=== PATIENT | female | born 1950 | race Caucasian/White ===

== ENCOUNTER 2017-02-03 19:22 | Emergency (ER) | payer BC, OTHER ==
[~2017-02-03] VITALS: Ht 165.1 cm; Wt 65.0 kg
--- NOTE | 2017-02-03 19:34 | PD ---
HPI Chief Complaint: Garcia act Time Seen by Provider: 19:34 Travel History International Travel<30 days: No Contact w/Intl Traveler<30days: No Traveled to known affect area: No History of Present Illness HPI 66-year-old female came to the emergency room brought by the semiconductor packages platemaker under Garcia act for trying to cut her wrist. Patient says that her is a chronic alcoholic and today when she found him drinking again she got frustrated and went back home and cut her wrist with scissors and sent him pictures. She waited to hear back from him but when she did not she bandaged it and went to sleep. That is When the deputies showed up at her doorstep because her had called them. Patient says she had no intentions of killing herself. She does not drink alcohol or and do any drugs. She seems calm and cooperative. PFSH Past Medical History Narrative Medical List of her past medical, surgical, social and family history was reviewed from the nursing note. Social History Tobacco Use: No Allergies-Medications (Allergen,Severity, Reaction): Coded Allergies: Opiate Agonists (Narcotics) (Verified Allergy, Intermediate, 02/03/17) severe itchiness Comments List of her allergies reviewed from the nursing note. Reported Meds & Prescriptions Reported Meds & Active Scripts Active Reported Ambien (Zolpidem Tartrate) 10 Mg Tab 10 Mg PO HS PRN Sulfasalazine 500 Mg Tab 500 Mg PO Q8H Soma (Carisoprodol) 250 Mg Tab 250 Mg PO QID PRN Wellbutrin SR 12 HR (Bupropion HCl) 200 Mg Tab 200 Mg PO Q12HR Narrative Medication List of her home medications reviewed from the nursing note. Review of Systems Except as stated in HPI: all other systems reviewed are Neg Physical Exam Narrative GENERAL: Awake, alert, no obvious distress SKIN: Focused skin assessment warm/dry. Multiple superficial lacerations along with 2 deep laceration on the left wrist volar aspect. 2 of them have some active bleeding in the form of slow ooze HEAD: Atraumatic. Normocephalic. EYES: Pupils equal and round. No scleral icterus. No injection or drainage. ENT: No nasal bleeding or discharge. Mucous membranes pink and moist. NECK: Trachea midline. No JVD. CARDIOVASCULAR: Regular rate and rhythm. No murmur appreciated. RESPIRATORY: No accessory muscle use. Clear to auscultation. Breath sounds equal bilaterally. GASTROINTESTINAL: Abdomen soft, non-tender, nondistended. Hepatic and splenic margins not palpable. MUSCULOSKELETAL: No obvious deformities. No clubbing. No cyanosis. No edema. NEUROLOGICAL: Awake and alert. No obvious cranial nerve deficits. Motor grossly within normal limits. Normal speech. PSYCHIATRIC: Appropriate mood and affect; insight and judgment normal. Data Data Last Documented VS Vital Signs Date Time Temp Pulse Resp B/P Pulse Ox O2 Delivery O2 Flow Rate FiO2 02/04/17 14:26 98.3 83 18 119/83 95 Room Air Orders Complete Blood Count With Diff (02/03/17 19:57) Comprehensive Metabolic Panel (02/03/17 19:57) Psych Screen (02/03/17 19:57) Drug Screen, Random Urine (02/03/17 19:57) Alcohol (Ethanol) (02/03/17 19:57) Tetanus/Diphtheria Tox Adult (Tetanus/Di (02/03/17 21:30) Diet Regular Basic (02/04/17 Breakfast) Diet Regular Basic (02/04/17 Lunch) Labs Laboratory Tests Test 02/03/17 20:00 White Blood Count 14.8 TH/MM3 Red Blood Count 3.95 MIL/MM3 Hemoglobin 12.4 GM/DL Hematocrit 36.5 % Mean Corpuscular Volume 92.5 FL Mean Corpuscular Hemoglobin 31.4 PG Mean Corpuscular Hemoglobin 33.9 % Concent Red Cell Distribution Width 13.0 % Platelet Count 339 TH/MM3 Mean Platelet Volume 8.7 FL Neutrophils (%) (Auto) 83.5 % Lymphocytes (%) (Auto) 11.3 % Monocytes (%) (Auto) 3.0 % Eosinophils (%) (Auto) 2.1 % Basophils (%) (Auto) 0.1 % Neutrophils # (Auto) 12.4 TH/MM3 Lymphocytes # (Auto) 1.7 TH/MM3 Monocytes # (Auto) 0.4 TH/MM3 Eosinophils # (Auto) 0.3 TH/MM3 Basophils # (Auto) 0.0 TH/MM3 CBC Comment DIFF FINAL Differential Comment Sodium Level 134 MEQ/L Potassium Level 3.7 MEQ/L Chloride Level 100 MEQ/L Carbon Dioxide Level 26.0 MEQ/L Anion Gap 8 MEQ/L Blood Urea Nitrogen 9 MG/DL Creatinine 1.00 MG/DL Estimat Glomerular Filtration 55 ML/MIN Rate Random Glucose 83 MG/DL Calcium Level 8.9 MG/DL Total Bilirubin 0.7 MG/DL Aspartate Amino Transf 31 U/L (AST/SGOT) Alanine Aminotransferase 20 U/L (ALT/SGPT) Alkaline Phosphatase 71 U/L Total Protein 7.6 GM/DL Albumin 4.2 GM/DL Urine Opiates Screen NEG Urine Barbiturates Screen NEG Urine Amphetamines Screen NEG Urine Benzodiazepines Screen POS Urine Cocaine Screen NEG Urine Cannabinoids Screen NEG Ethyl Alcohol Level LESS THAN 3 MG/DL MDM Medical Decision Making Medical Screen Exam Complete: Yes Emergency Medical Condition: Yes Medical Record Reviewed: Yes Differential Diagnosis Suicidal gesture, major depression, suicidal lady Narrative Course 9:24 PM blood test results of back and within normal limit. Urine drug screen is positive for benzo and I noticed that she does not have any benzodiazepine on her medication list. Patient denies doing any drugs. She does not recall her last tetanus shot. I'll give her one today. Patient requires psych screen. Procedures EKG Prior to Arrival: No Lissette Moody MD Feb 03, 2017 19:34 Lissette Moody MD Feb 03, 2017 19:34
[2017-02-03 19:50] VITALS: BP 103/58; PULSE 68; RESP 16; TEMP 99.3; O2SAT 97
[2017-02-03] MEDS ORDERED: SULF500T3 PO (20:03)
[2017-02-03] MEDS ORDERED: SOMA250T PO (20:03)
[2017-02-03] MEDS ORDERED: AMBI10TA PO (20:03)
[2017-02-03] MEDS ORDERED: WELL200T PO (20:03)
[2017-02-03 20:25] LABS: AUTOMATED NEUTROPHIL # 12.4 TH/MM3 (1.8-7.7); BASOPHIL % 0.1 % (0.0-2.0); EOSINOPHIL # 0.3 TH/MM3 (0-0.4); EOSINOPHIL % 2.1 % (0.0-4.0); HEMATOCRIT 36.5 % (35.0-46.0); HEMO FLAGS DIFF FINAL; LYMPH % 11.3 % (9.0-44.0); LYMPHOCYTE # 1.7 TH/MM3 (1.0-4.8); MEAN CELL VOLUME 92.5 FL (80.0-100.0); MEAN CORPUSCULAR HEMOGLOBIN 31.4 PG (27.0-34.0); MEAN CORPUSCULAR HGB CONC 33.9 % (32.0-36.0); NEUT % 83.5 % (16.0-70.0); PLATELET COUNT 339 TH/MM3 (150-450); RED BLOOD COUNT 3.95 MIL/MM3 (4.00-5.30); WHITE BLOOD COUNT 14.8 TH/MM3 (4.0-11.0)
[2017-02-03 20:36] LABS: AMPHETAMINE, URINE NEG (NEG); BARBITURATES, URINE NEG (NEG); COCAINE, URINE NEG (NEG)
--- NOTE | 2017-02-03 20:43 | PD ---
Physical Exam Date Seen by Provider: Feb 03, 2017 Time Seen by Provider: 20:42 Narrative Full history and physical examination please see previous provider's note. I repaired laceration to patient's left wrist Data Data Last Documented VS Vital Signs Date Time Temp Pulse Resp B/P Pulse Ox O2 Delivery O2 Flow Rate FiO2 02/03/17 19:50 99.3 68 16 103/58 97 Orders Complete Blood Count With Diff (02/03/17 19:57) Comprehensive Metabolic Panel (02/03/17 19:57) Psych Screen (02/03/17 19:57) Drug Screen, Random Urine (02/03/17 19:57) Alcohol (Ethanol) (02/03/17 19:57) Labs Laboratory Tests Test 02/03/17 20:00 White Blood Count 14.8 TH/MM3 Red Blood Count 3.95 MIL/MM3 Hemoglobin 12.4 GM/DL Hematocrit 36.5 % Mean Corpuscular Volume 92.5 FL Mean Corpuscular Hemoglobin 31.4 PG Mean Corpuscular Hemoglobin 33.9 % Concent Red Cell Distribution Width 13.0 % Platelet Count 339 TH/MM3 Mean Platelet Volume 8.7 FL Neutrophils (%) (Auto) 83.5 % Lymphocytes (%) (Auto) 11.3 % Monocytes (%) (Auto) 3.0 % Eosinophils (%) (Auto) 2.1 % Basophils (%) (Auto) 0.1 % Neutrophils # (Auto) 12.4 TH/MM3 Lymphocytes # (Auto) 1.7 TH/MM3 Monocytes # (Auto) 0.4 TH/MM3 Eosinophils # (Auto) 0.3 TH/MM3 Basophils # (Auto) 0.0 TH/MM3 CBC Comment DIFF FINAL Differential Comment MDM Supervised Visit with ALIRIO: Yes Procedures Procedure Narrative LACERATION LOCATION: Left wrist LENGTH: 1 cm NUMBER OF STITCHES/АЛЕКСАНДР: 2 stitches REPAIR: The area of the laceration was prepped with Betadine and sterilely draped. The laceration was infiltrated with 1% lidocaine. The wound was copiously irrigated and explored without evidence of foreign body, tendon injury or neurovascular injury. The wound was closed using 4-0 Prolene. This was a 1 layer repair. A sterile dressing was applied. The patient was advised to keep the dressing clean and dry. Patient tolerated the procedure well. Zita He Feb 03, 2017 20:43
[2017-02-03 20:44] LABS: ANION GAP 8 MEQ/L (5-15); AST (GOT) 31 U/L (15-37); BLOOD UREA NITROGEN 9 MG/DL (7-18); CHLORIDE 100 MEQ/L (98-107); GLOMERULAR FILTRATION RATE 55 ML/MIN (>89); POTASSIUM 3.7 MEQ/L (3.5-5.1); SODIUM (NA) 134 MEQ/L (136-145)
[2017-02-03 20:45] LABS: ALT (GPT) 20 U/L (10-53)
[2017-02-03 20:47] LABS: ALKALINE PHOSPHATASE 71 U/L (45-117); TOTAL BILIRUBIN ADULT 0.7 MG/DL (0.2-1.0)
[2017-02-03] MEDS ORDERED: TETANUS/DIPHTHERIA TOXOID ADULT 0.5 ML VIAL IM ONE (21:30)
[2017-02-03 21:43] VITALS: BP 124/72; PULSE 88; RESP 18; TEMP 98.4; O2SAT 98
[2017-02-04 10:41] VITALS: BP 106/69; PULSE 68; RESP 18; O2SAT 97
[2017-02-04 14:26] VITALS: BP 119/83; PULSE 83; RESP 18; TEMP 98.3; O2SAT 95
--- NOTE | 2017-02-04 17:32 | PD ---
History of Present Illness Chief Complaint: Psychiatric Symptoms Travel History International Travel<30 Days: No Contact w/Intl Traveler<30days: No Known affected area: No Legal Status Legal Status: Garcia Act Garcia Act Signed By: Sheridan Garcia Act Comment: 2016 @ 1830 History of Present Illness: 66-year-old female who got upset with her of many years after she found him drinking alcohol once again, earlier today. Patient apparently cut her left wrist, significantly enough to require sutures. Patient currently admits to doing a foolish thing. She acknowledges she was trying to shock and disturb her . She is now denying any suicidal or homicidal ideation, plan or intent. She has no psychotic symptoms and her cognition is intact. She is verbally andrea for safety. She at least cognitively acknowledges she is unable to get her to stop drinking alcohol and she should not be attempting to control this behavior but rather take care of herself. PFSH Past Medical History Arthritis: Yes (RA) Anxiety: Yes Depression: Yes Tetanus Vaccination: > 5 Years Past Surgical History Abdominal Surgery: Yes (removed 6in of colon) Hysterectomy: Yes Psychiatric History Psychiatric History Hx Psychiatric Treatment: DENIES History of Inpatient Treatment: No Guns or firearms in home: Yes Social History Hx Alcohol Use: Yes (rarely ) Hx Tobacco Use: No Hx Substance Use: No Hx of Substance Use Treatment: No Allergies-Medications (Allergen,Severity, Reaction): Coded Allergies: Opiate Agonists (Narcotics) (Verified Allergy, Intermediate, 02/03/17) severe itchiness Reported Meds & Prescriptions Reported Meds & Active Scripts Active Reported Ambien (Zolpidem Tartrate) 10 Mg Tab 10 Mg PO HS PRN Sulfasalazine 500 Mg Tab 500 Mg PO Q8H Soma (Carisoprodol) 250 Mg Tab 250 Mg PO QID PRN Wellbutrin SR 12 HR (Bupropion HCl) 200 Mg Tab 200 Mg PO Q12HR Review of Systems Except as stated in HPI: all other systems reviewed are Neg Exam Alert: Yes [place]: Person, Place, Date, Situation Mood: Calm Affect: Appropriate Speech: Clear, Logical Eye Contact: Normal Memory Intact: Immediate, Recent, Remote Insight/Judgement Adequate MDM Medical Decision Making Medical Record Reviewed: Yes Assessment/Plan 66-year-old female who cut her wrist in an attempt to shock her into stopping his alcohol abuse. Patient has been to this man for a long time and he has been abusing alcohol for years. Patient admits to doing a foolish thing but she did require sutures because of the cut she inflicted on herself. At this time she denies any suicidal or homicidal ideation, plan or intent. She has no psychotic symptoms and her cognition is intact. She is verbally andrea for safety. She is calm, pleasant and cooperative but was informed she is demonstrating codependency. However, at this point, this physician feels she does not meet criteria for inpatient psychiatric hospitalization and she does not meet criteria for continued Garcia act. This physician does feel that her personality disorder, including codependent traits , is what led her to cut herself and thereby qualified for an adjustment disorder diagnosis. Orders Complete Blood Count With Diff (02/03/17 19:57) Comprehensive Metabolic Panel (02/03/17 19:57) Psych Screen (02/03/17 19:57) Drug Screen, Random Urine (02/03/17 19:57) Alcohol (Ethanol) (02/03/17 19:57) Tetanus/Diphtheria Tox Adult (Tetanus/Di (02/03/17 21:30) Diet Regular Basic (02/04/17 Breakfast) Diet Regular Basic (02/04/17 Lunch) Diet Regular Basic (02/04/17 Dinner) Results Vital Signs Date Time Temp Pulse Resp B/P Pulse Ox O2 Delivery O2 Flow Rate FiO2 02/04/17 14:26 98.3 83 18 119/83 95 Room Air 02/04/17 10:41 68 18 106/69 97 Room Air 02/03/17 21:43 98.4 88 18 124/72 98 Room Air 02/03/17 19:50 99.3 68 16 103/58 97 Laboratory Tests Test 02/03/17 20:00 White Blood Count 14.8 Red Blood Count 3.95 Hemoglobin 12.4 Hematocrit 36.5 Mean Corpuscular Volume 92.5 Mean Corpuscular Hemoglobin 31.4 Mean Corpuscular Hemoglobin 33.9 Concent Red Cell Distribution Width 13.0 Platelet Count 339 Mean Platelet Volume 8.7 Neutrophils (%) (Auto) 83.5 Lymphocytes (%) (Auto) 11.3 Monocytes (%) (Auto) 3.0 Eosinophils (%) (Auto) 2.1 Basophils (%) (Auto) 0.1 Neutrophils # (Auto) 12.4 Lymphocytes # (Auto) 1.7 Monocytes # (Auto) 0.4 Eosinophils # (Auto) 0.3 Basophils # (Auto) 0.0 CBC Comment DIFF FINAL Differential Comment Sodium Level 134 Potassium Level 3.7 Chloride Level 100 Carbon Dioxide Level 26.0 Anion Gap 8 Blood Urea Nitrogen 9 Creatinine 1.00 Estimat Glomerular Filtration 55 Rate Random Glucose 83 Calcium Level 8.9 Total Bilirubin 0.7 Aspartate Amino Transf 31 (AST/SGOT) Alanine Aminotransferase 20 (ALT/SGPT) Alkaline Phosphatase 71 Total Protein 7.6 Albumin 4.2 Urine Opiates Screen NEG Urine Barbiturates Screen NEG Urine Amphetamines Screen NEG Urine Benzodiazepines Screen POS Urine Cocaine Screen NEG Urine Cannabinoids Screen NEG Ethyl Alcohol Level LESS THAN 3 Diagnosis 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
== END 2017-02-04 18:01 | disposition home or self-care (01) ==
LOC: NEPD 19:22 → NEPJ 02-04 18:01
DX: S61.512A Laceration without foreign body of left wrist, initial encounter (principal); F43.25 Adjustment disorder with mixed disturbance of emotions and conduct; F60.9 Personality disorder, unspecified; Z23 Encounter for immunization; Z79.899 Other long term (current) drug therapy; Z87.39 Personal history of other diseases of the musculoskeletal system and connective tissue; Z86.59 Personal history of other mental and behavioral disorders; X78.8XXA Intentional self-harm by other sharp object, initial encounter
CPT/HCPCS: 12001; 80053; 80307; 85025; 90471; 90714